=== PATIENT | female | born 1980 | race Caucasian/White ===

== ENCOUNTER 2016-11-26 16:31 | Emergency (ER) | payer SELFPAY ==
[2016-11-26 17:16] VITALS: BP 102/59
[2016-11-26 18:32] LABS: Basophils % (Auto) 0.6 % (0.0-1.8); Eosinophils % (Auto) 1.9 % (0.0-4.3); Hemoglobin 11.6 gm/dl (10.1-14.3); Mean Corpuscular HGB Conc 33 % (30-34); Mean Corpuscular Hemoglobin 29 pg (28-32); Mean Corpuscular Volume 86 fl (79-97); Platelet Count 269 K/mm3 (140-440); Red Blood Count 4.06 M/mm3 (3.65-5.03); White Blood Count 8.8 K/mm3 (4.5-11.0)
[2016-11-26 19:06] LABS: Bilirubin,Urine NEG (Negative); Blood,Urine SM (Negative); Ketones,Urine NEG (Negative); Leukocyte Esterase,Urine NEG (Negative); Mucus,Urine FEW /HPF; Nitrite,Urine NEG (Negative); Protein,Urine <15 mg/dL mg/dL (Negative); Urobilinogen,Urine < 2.0 mg/dL (<2.0)
--- NOTE | 2016-11-26 20:18 | Ultrasound Report ---
FINAL REPORT PROCEDURE: US OB \T\lt; = 14 WEEKS FETUS TECHNIQUE: Real-time transabdominal sonography of the uterus, placenta, amniotic fluid, adnexa, and fetus was performed with image documentation. Measurements were obtained to determine age/size. M-mode Doppler was used to document heartbeat. CPT 28509 HISTORY: VAGINAL BLEEDING / PELVIC PAIN / BACK PAIN COMPARISON: No prior studies are available for comparison. FINDINGS: CRL: 10.2 mm, which corresponds to a gestational age of: 7 weeks, 1 days. Yolk Sac: Normal. Embryonic Cardiac Activity: None detected Gestational Sac: Normal. Amniotic fluid: Normal. Cervix: Normal. Right Ovary: Normal. Left Ovary: Normal. IMPRESSION: Intrauterine gestation at 7 weeks and 1 day. No cardiac activity is detected. demise is suspected.
--- NOTE | 2016-11-26 20:21 | Ultrasound Report ---
FINAL REPORT PROCEDURE: US OB \T\lt; = 14 WEEKS FETUS TECHNIQUE: Real-time transvaginal sonography of the uterus, placenta, amniotic fluid, adnexa, and fetus was performed with image documentation. Measurements were obtained to determine age/size. HISTORY: VAGINAL BLEEDING / PELVIC PAIN / BACK PAIN COMPARISON: No prior studies are available for comparison. FINDINGS: CRL: 10.2 mm, which corresponds to a gestational age of: 7 weeks, 1 days. Yolk Sac: Normal. Embryonic Cardiac Activity: None detected Gestational Sac: Normal. Amniotic fluid: Normal. Cervix: Normal. Right Ovary: Normal. Left Ovary: Normal. IMPRESSION: Intrauterine gestation at 7 weeks and 1 day. No cardiac activity is detected. demise is suspected.
[2016-11-26] MEDS ORDERED: TYLENOL PO ONE (21:41)
--- NOTE | 2016-11-26 21:46 | Emergency Department Report ---
ED HPI - General Chief complaint: Vaginal Bleeding Stated complaint: 8 WKS PREG/BLEEDING Source: patient, family Mode of arrival: Ambulatory Limitations: Language Barrier - History of Present Illness Initial comments: 36-year-old 8 weeks female comes in complaining of lower back pain and lower pelvic pain and vaginal bleeding since last night. 8 para 6 miscarriage in 2013 about 8 weeks. She reports she had not started OB care as of yet. But her past OB and [employer] provider was here at [facility]. is able to communicate well with this provider. - Related Data Home Medications Medication Instructions Recorded Confirmed Last Taken No Known Home Medications [No 11/10/13 05/01/15 Unknown Reported Home Medications] Allergies Allergy/AdvReac Type Severity Reaction Status Date / Time No Known Allergies Allergy Verified 11/26/16 17:19 ED Review of Systems ROS: Stated complaint: 8 WKS PREG/BLEEDING Other details as noted in HPI Constitutional: denies: chills, fever Gastrointestinal: abdominal pain, other (pelvic pain). denies: nausea, vomiting Genitourinary: other (vaginal bleeding). denies: urgency, dysuria, hematuria, discharge Musculoskeletal: back pain (lower back cramping) Skin: denies: rash, lesions ED Past Medical Hx - Past Medical History Previous Medical History?: No Hx Hypertension: No Hx Congestive Heart Failure: No Hx Diabetes: No Hx Deep Vein Thrombosis: No Hx Renal Disease: No Hx Sickle Cell Disease: No Hx Seizures: No Hx Asthma: No Hx COPD: No Hx HIV: No - Surgical History Past Surgical History?: No - Social History Smoking Status: Never Smoker Substance Use Type: None - Medications Home Medications: Home Medications Medication Instructions Recorded Confirmed Last Taken Type No Known Home Medications [No 11/10/13 05/01/15 Unknown History Reported Home Medications] ED Physical Exam - General Limitations: Language Barrier General appearance: alert, in no apparent distress - Head Head exam: Present: atraumatic, normocephalic - Eye Eye exam: Present: normal appearance - Respiratory Respiratory exam: Present: normal lung sounds bilaterally. Absent: respiratory distress, wheezes - Cardiovascular Cardiovascular Exam: Present: regular rate, normal rhythm, normal heart sounds - GI/Abdominal GI/Abdominal exam: Present: soft, tenderness (pelvic). Absent: distended ED Course Vital Signs 11/26/16 17:11 Temperature 99.3 F Pulse Rate 75 Respiratory 16 Rate Blood Pressure 102/59 O2 Sat by Pulse 99 Oximetry ED Medical Decision Making - Lab Data Result diagrams: 11/26/16 17:54 - Medical Decision Making Patient's been evaluated with his provider pain ER. Patient's had labs done and ultrasound which showed a demise. No cardiac activity on the fetus. Discussed with and patient that the fetus is not thriving. Also discussed with and patient the patient is to follow-up with her OB provider on Monday for lab work and further evaluation. and patient verbalized understanding. He is provided with give patient Tylenol 975 mg by mouth now for pain and discomfort. Patient declines any further counseling. Critical care attestation.: If time is entered above; I have spent that time in minutes in the direct care of this critically ill patient, excluding procedure time. ED Disposition Clinical Impression: demise Disposition: DISCHARGED TO HOME OR SELFCARE Is pt being admited?: No Does the pt Need Aspirin: No Condition: Stable Instructions: Intrauterine Demise (ED) Additional Instructions: Very importantly to follow up with your OB provider on Monday. Or as soon as possible. He can take Tylenol for pain and discomfort. Referrals: PRIMARY CARE, [Primary Care Provider] - 3-5 Days Forms: Work/School Release Form(ED)
== END 2016-11-26 22:50 | disposition home or self-care (01) ==
LOC: ED 16:31
DX: O36.4XX0 Maternal care for intrauterine death, not applicable or unspecified (principal); Z3A.08 8 weeks gestation of pregnancy
CPT/HCPCS: 36415; 76801; 76817; 81001; 84702; 85025; 86850; 86900; 86901